=== PATIENT | female | born 2000 | race Caucasian/White ===

== ENCOUNTER 2023-01-18 00:03 | Emergency (ER) | payer BC ==
[2023-01-18 00:55] LABS: HEMATOCRIT 46.2 % (34.1-44.9); HEMOGLOBIN 15.1 gm/dl (11.2-15.7); MEAN CORPUSCULAR HEMOGLOBIN 27.1 pg (25.6-32.2); MEAN CORPUSCULAR HGB CONC 32.7 g/dl (32.2-35.5); MEAN CORPUSCULAR VOLUME 82.9 fl (79.4-94.8); MEAN PLATELET VOLUME 9.9 fl (9.4-12.3); PLATELET COUNT,PLT 281 K/mm3 (182-369); RED BLOOD CELL COUNT 5.57 M/mm3 (3.98-5.22); WHITE BLOOD CELL COUNT,WBC 5.33 K/mm3 (3.98-10.04)
[2023-01-18 01:42] LABS: CORONAVIRUS COVID-19 NAA NEGATIVE (NEGATIVE); INFLUENZA A NAA NEGATIVE (NEGATIVE); RESPIRATORY SYNCYTIAL VIR NAA NEGATIVE (NEGATIVE)
[2023-01-18 01:44] LABS: BAND PERCENT MAN 0 % (0-10); BASOPHILS PERCENT MAN 0 (0.1-1.2); EOSINOPHILS PERCENT MAN 1 % (0.7-5.8); LYMPHOCYTES % ATYPICAL MANUAL 0 %; LYMPHOCYTES PERCENT MAN 34 % (20-40); MONOCYTES PERCENT MAN 14 % (2-10); PLATELET COUNT ESTIMATE ADEQUATE
== END 2023-01-18 02:35 | disposition home or self-care (01) ==
LOC: JD.ED 00:03
DX: J06.9 Acute upper respiratory infection, unspecified (principal); Z91.048 Other nonmedicinal substance allergy status; Z86.16 Personal history of COVID-19; Z20.822 Contact with and (suspected) exposure to COVID-19
CPT/HCPCS: 0241U; 36415; 71046; 85007; 85027; 86140; 87651; 99283